=== PATIENT | male | born 1970 | race Caucasian/White ===

== ENCOUNTER 2016-08-10 12:00 | Inpatient (IN) | payer OTHER ==
--- NOTE | ~2016-08-10 | DS ---
Unit #: [id number] #: [id number] Patient: MIKAYLA CURRY [id number] [facility] [address] [place] [address] [id number] MR#: [id number] NAME: MIKAYLA CURRY ROOM: P256 Age: 45 Sex: M Admission Date: 08/10/2016 : 1970 Discharge Date: 08/15/2016 Attending Physician: Blair Garcia M.D. Primary Care Physician: Generic Doctor Not In System DISCHARGE SUMMARY REASON FOR ADMISSION Mikayla is a 45-year-old man, admitted due to increasing depression, anxiety, seeking pain medications, and conflict with his family prior to admission. He was admitted for stabilization. DIAGNOSTIC STUDIES Please see hospital chart. HOSPITAL COURSE The patient was admitted and placed on suicide precautions, his previous medications of Lexapro, Requip, Depakote, Neurontin, and Singulair were continued with the addition of Abilify 5 mg daily. The patient was also provided with Vistaril as needed for anxiety and irritability. He stated that he was irritable and angry and had been that way, "most of my life." He continually insisted on "something for my nerves," and felt that Abilify and Lexapro had been ineffective. I informed the patient that we would not initiate benzodiazepines or opiate pain medications, but I discontinued the Lexapro due to the risk of bipolar activation and increased Abilify to 10 mg at bedtime. He seemed to tolerate this with decreased irritability, and was able to contract for safety on the date of discharge. DISCHARGE DIAGNOSES Lebo I Bipolar depressed. Lebo II No diagnosis. Lebo III Chronic pain. History of seizures. Lebo IV Lebo V INSTRUCTIONS TO PATIENT Follow up with [facility] in [place], [place]. DISCHARGE MEDICATIONS 1. Depakote ER 500 mg twice daily for mood stability 2. Neurontin 600 mg three times a day for anxiety 3. Requip 2 mg at bedtime for restless leg syndrome 4. Trazodone 50 mg at bedtime for insomnia. 5. Abilify 10 mg daily for mood stability 6. Singulair 10 mg daily for allergies 7. Lexapro was discontinued during this admission Unit #: [id number] #: [id number] Patient: MIKAYLA CURRY CONDITION AT DISCHARGE Improved. PROGNOSIS Zaga-qz-dwam. DIET AND ACTIVITY Per primary care doctor. Dictated by... Anthony Salazar/amanda TD: 09/21/2016 06:51 JOB #: [id number] DISCHARGE SUMMARY Page 1 of 1 X Blair Garcia MD X DISCHARGE SUMMARY
--- NOTE | ~2016-08-10 | PN ---
Unit #: [id number] #: [id number] Patient: MIKAYLA CURRY [id number] [facility] [address] [place] [address] [id number] I MR#: [id number] NAME: MIKAYLA CURRY ROOM: P256 Age: 45 Sex: M Admission Date: 08/10/2016 : 1970 Attending Physician: Blair Garcia M.D. Admitting Physician: Blair Garcia M.D. Primary Care Physician: [facility] Doctor Not In System [facility] PROGRESS NOTES DATE OF SERVICE 08/14/2016 DISCUSSION Mikayla remains somewhat irritable today but has tolerated his increased dose of medicines with no significant adverse side effects so far. Mood remains labile and irritable with a congruent affect. He is alert and fully oriented. Memory and concentration are fair. Thought processes are logical with no active psychosis. Labs are notable for a low Depakote level of 29 and a high ammonia level of 73. ASSESSMENT Bipolar disorder depressed. PLAN We will continue with current medication regimen and monitor for response Dictated by... Blair Garcia M.D. CHUCK/brady TD: 08/16/2016 00:33 JOB #: [id number] [facility] PROGRESS NOTES Page 1 of 1 X Blair Garcia MD PROGRESS NOTE
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
--- NOTE | ~2016-08-10 | PN ---
Unit #: [id number] #: [id number] Patient: MIKAYLA CURRY [id number] [facility] [address] [place] [address] [id number] I MR#: [id number] NAME: MIKAYLA CURRY ROOM: P256 Age: 45 Sex: M Admission Date: 08/10/2016 : 1970 Attending Physician: Blair Garcia M.D. Admitting Physician: Blair Garcia M.D. Primary Care Physician: Generic Doctor Not In System [employer] NOTES DATE OF SERVICE 08/13/2016 DISCUSSION Mikayla was admitted over the weekend due to irritability and "needing something for my nerves". He also continues to complain of chronic pain and irritability. He is alert and fully oriented today with an irritable and angry mood and consistent affect. Memory and concentration are fair and his thought processes are concrete but nonpsychotic. His family reports antidepressant medications have always made him worse and that he has been irritable and angry "most of his life." He also has a history of alcoholism. ASSESSMENT Bipolar depressed. PLAN We will discontinue Lexapro and increase Abilify to 10 mg at bedtime. I have informed the patient that we will not be able to initiate benzodiazepines or opiate pain medications during this admission and he stated that he understood this limitation. Dictated by... Blair Garcia M.D. CHUCK/brady TD: 08/14/2016 22:50 JOB #: [id number] [employer] NOTES Page 1 of 1 X Blair Garcia MD PROGRESS NOTE
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
--- NOTE | ~2016-08-10 | PN ---
Unit #: [id number] #: [id number] Patient: MIKAYLA CURRY [id number] [facility] [address] [place] [address] [id number] MR#: [id number] NAME: MIKAYLA CURRY ROOM: P256 Age: 45 Sex: M Admission Date: 08/10/2016 : 1970 Attending Physician: Blair Garcia M.D. Admitting Physician: Blair Garcia M.D. Primary Care Physician: Generic Doctor Not In System [facility] [employer] NOTES DATE August 12, [address] Blair Garcia DISCUSSION This patient was seen and evaluated on August 12, 2016. He continued to report ongoing anxiety. He was given Vistaril 25 mg q.6h p.r.n. He is a bit irritable, and continues to request more pain medication. His appetite and sleep are adequate at this time. The patient is cooperative during assessment. He denies any SI or HI and contracts for safety. The patient will continue his current psychiatric medications and meet with his primary psychiatrist tomorrow, Dr. Denise. Dictated by..Janelle Scherer/amanda TD: 08/14/2016 09:44 JOB #: [id number] [facility] [employer] NOTES Page 1 of 1 X Paola Mathias PROGRESS NOTE
[2016-08-11 11:35] LABS: AMPHETAMINE NEG (NEG); BARBITURATES NEG (NEG); BENZODIAZEPINES NEG (NEG); COCAINE NEG (NEG); MARIJUANA NEG (NEG); OPIATES NEG (NEG); TRICYCLIC ANTIDEPRESSANTS NEG (NEG); U METHADONE NEG (NEG)
[2016-08-11 11:57] LABS: BASOPHIL% 0.6 % (0-2.5); EOSINOPHIL# 0.2 X10e3 (0-0.7); EOSINOPHIL% 2.6 % (0.0-7.0); HEMATOCRIT 40.6 % (38.0-50.0); HEMOGLOBIN 13.7 gm/dL (13.0-16.0); LYMPHOCYTE# 3.4 X10e3 (1.0-3.5); LYMPHOCYTE% 49.2 % (17.0-45.0); MEAN CELL VOLUME 96.7 FL (83-96); MEAN CORPUSCULAR HEMOGLOBIN 32.6 PG (28-34); MEAN CORPUSCULAR HGB CONC 33.7 g/dL (30-36); MEAN PLATELET VOLUME 9.6 FL (6.5-11.5); MONOCYTE# 0.5 X10e3 (0-1.0); NEUTROPHIL# 2.8 X10e3 (1.5-7.1); NEUTROPHIL% 40.6 % (40-75); PLATELET COUNT 222 X10e3 (140-420); RED CELL DISTRIBUTION WIDTH 13.2 % (11.0-15.5)
[2016-08-11 11:59] LABS: DIFF IND NO
[2016-08-11 12:13] LABS: ALBUMIN SERUM 4.3 g/dL (3.5-5.0); BILIRUBIN,TOTAL 0.8 mg/dL (0.2-2.0); BUN/CREATININE RATIO 18.75; CALCIUM SERUM 9.8 mg/dL (8.4-10.2); CREATININE SERUM 0.8 mg/dL (0.6-1.4); GLOM FILT RATE Estimated 108.7 mL/min (>60); POTASSIUM 4.7 mmol/L (3.5-5.1); PROTEIN TOTAL SERUM 7.1 g/dL (6.0-8.3)
== END 2016-08-15 13:30 | disposition home or self-care (01) | DRG 885 ==
LOC: P2L 15:26
PROVIDERS: Psychiatry & Neurology Psychiatry
DX: F31.9 Bipolar disorder, unspecified (principal); G40.909 Epilepsy, unspecified, not intractable, without status epilepticus; F17.210 Nicotine dependence, cigarettes, uncomplicated; G89.29 Other chronic pain; J45.909 Unspecified asthma, uncomplicated; Z88.0 Allergy status to penicillin
CPT/HCPCS: 80053; 80164; 80307; 82140; 85025